=== PATIENT | male | born 1950 | race African-American/Black ===

== ENCOUNTER 2018-01-01 22:42 | Observation (INO) ==
[2018-01-01] MEDS ORDERED: ONDANSETRON 4 MG/2 ML VIAL IV STA (23:32)
[2018-01-01] MEDS ORDERED: methylPREDNISolone SOD SUC 125 MG/2 ML VIAL IV STA (23:32)
[2018-01-01] MEDS ORDERED: FUROSEMIDE 100 MG/10 ML VIAL IV STA (23:32)
[2018-01-01] MEDS ORDERED: ALBUTEROL 2.5 MG/3 ML NEB RESP TX SCH (23:45)
[2018-01-01 23:46] LABS: Basophils # 0.1 10*3/uL (0.0-0.2); Basophils % 0.4 % (0.0-0.8); Eosinophils # 0.9 10*3/uL (0.0-0.87); Eosinophils % 7.1 % (0.00-10.9); Hematocrit 38.9 VOL% (42.0-52.0); Hemoglobin 12.5 GM/DL (14.0-18.0); Immature Granulocytes % 1.3 %; Immature Granulocytes Absolute 0.16 #; Lymphocytes # 2.5 10*3/uL (1.4-4.0); Lymphocytes % 20.5 % (21.2-54.2); Mean Corpuscular HGB Conc 32.1 GM/DL (32-36); Mean Corpuscular Hemoglobin 27 PG (27-34); Mean Corpuscular Volume 85.3 FL (87-102); Mean Platelet Volume 10.5 FL (9.6-12.0); Monocytes # 1.1 10*3/uL (0.11-0.8); Monocytes % 9.3 % (1.7-12.7); Neutrophils # 7.5 10*3/uL (1.4-7.4); Neutrophils % 61.4 % (38.7-73.9); Platelet Count 242 T/CUMM (130-400); Red Blood Count 4.56 MC/CUMM (3.8-5.5); Red Cell Distribution Width 15.5 % (9.3-17.3); White Blood Count 12.2 T/CUMM (4-12)
[2018-01-01 23:53] LABS: PT Patient Result 10.2 SECS
[2018-01-02] LABS: Albumin 3.5 G/DL (3.4-5.0); Bilirubin,Total 0.4 MG/DL (0.2-1.0); Calcium 9.1 MG/DL (8.5-10.1); Osmolality,Calculated 280.4 MOS/KG (273-304); Potassium 3.6 MMOL/L (3.5-5.1); Total Protein 7.9 G/DL (6.4-8.3)
[2018-01-02 00:07] LABS: ABG HCO3 27.1 MMOL/L (20-26); ABG Oxygen Saturation 98.2 % (95-100); ABG PCO2 44.8 MM HG (35-48); ABG PH 7.407 (7.35-7.45); ABG TCO2 24.9 MMOL/L (23-27)
[2018-01-02] MEDS ORDERED: MAGNESIUM SULF RIDER 2 GM in PREMIX 1 EACH IV STA (00:50)
[2018-01-02] MEDS ORDERED: ALBUTEROL 2.5 MG/3 ML NEB RESP TX PRN (01:35)
[2018-01-02] MEDS ORDERED: ACETAMINOPHEN 325 MG TABLET PO PRN (01:41)
[2018-01-02] MEDS ORDERED: ONDANSETRON 4 MG/2 ML VIAL IV PRN (01:41)
[2018-01-02] MEDS ORDERED: methylPREDNISolone SOD SUC 40 MG/1 ML VIAL IV SCH (02:00)
[2018-01-02] MEDS ORDERED: cefTRIAXone 1,000 MG in SYRINGE 1 EACH IV SCH (02:00)
[2018-01-02] MEDS ORDERED: AZITHROMYCIN INJ 500 MG in SODIUM CHLORIDE 0.9% 250 ML IV SCH (04:00)
[2018-01-02 06:18] LABS: Basophils % 0.3 % (0.0-0.8); Eosinophils # 0.1 10*3/uL (0.0-0.87); Eosinophils % 0.6 % (0.00-10.9); Hematocrit 39.8 VOL% (42.0-52.0); Hemoglobin 12.8 GM/DL (14.0-18.0); Immature Granulocytes % 0.9 %; Immature Granulocytes Absolute 0.08 #; Lymphocytes # 0.7 10*3/uL (1.4-4.0); Lymphocytes % 8.4 % (21.2-54.2); Mean Corpuscular HGB Conc 32.2 GM/DL (32-36); Mean Corpuscular Hemoglobin 27 PG (27-34); Mean Corpuscular Volume 85.2 FL (87-102); Mean Platelet Volume 9.4 FL (9.6-12.0); Monocytes # 0.1 10*3/uL (0.11-0.8); Monocytes % 1.3 % (1.7-12.7); Neutrophils # 7.7 10*3/uL (1.4-7.4); Neutrophils % 88.5 % (38.7-73.9); Platelet Count 242 T/CUMM (130-400); Red Blood Count 4.67 MC/CUMM (3.8-5.5); Red Cell Distribution Width 15.3 % (9.3-17.3); White Blood Count 8.7 T/CUMM (4-12)
[2018-01-02] MEDS: methylPREDNISolone SOD SUC 40 MG/1 ML VIAL IV SCH ×2 (06:20→16:17)
[2018-01-02] MEDS: ALBUTEROL/IPRATROPIUM 3 ML NEB RESP TX SCH ×2 (06:58→12:00)
[2018-01-02 06:59] LABS: Calcium 9.5 MG/DL (8.5-10.1); Osmolality,Calculated 279.7 MOS/KG (273-304); Potassium 3.7 MMOL/L (3.5-5.1); Thyroid Stimulating Hormone 0.66 uIU/ml (0.358-3.74)
[2018-01-02] MEDS ORDERED: THEOPHYLLINE ER (24 HR) 200 MG CAPSULE PO SCH (09:00)
[2018-01-02] MEDS ORDERED: METOPROLOL TARTRATE 25 MG TABLET PO SCH (09:00)
[2018-01-02] MEDS ORDERED: Umeclidinium Brm/Vilanterol Tr [Anoro Ellipta] 1 PUFF INH SCH (09:00)
[2018-01-02] MEDS ORDERED: FAMOTIDINE 20 MG TABLET PO SCH (09:00)
[2018-01-02] MEDS ORDERED: CETIRIZINE 10 MG TABLET PO SCH (09:00)
[2018-01-02] MEDS ORDERED: CARVEDILOL 3.125 MG TABLET PO SCH (09:00)
[2018-01-02] MEDS ORDERED: FLUTICASONE 50 MCG NASAL SPRAY 16 GM BOTTLE BOTH NARES SCH (09:00)
[2018-01-02] MEDS ORDERED: LISINOPRIL/HCTZ 10-12.5 MG TABLET PO SCH (09:00)
[2018-01-02] MEDS ORDERED: ASPIRIN EC 81 MG TABLET PO SCH (09:00)
[2018-01-02] MEDS ORDERED: ENOXAPARIN 40 MG/0.4 ML SYRINGE SUBCUT SCH (09:00)
[2018-01-02] MEDS ORDERED: RANITIDINE 150 MG TABLET PO SCH (11:30)
[2018-01-02 18:19] VITALS: BP 116/78
== END 2018-01-02 16:25 | disposition home or self-care (01) ==
LOC: N.EDINP 22:42 → N.ED 22:42 → N.2E 01-02 02:19
PROVIDERS: ADMIT Internal Medicine; ATTEND Internal Medicine

== ENCOUNTER 2018-03-08 22:59 | Inpatient (IN) ==
[2018-03-08] MEDS ORDERED: ALBUTEROL/IPRATROPIUM 3 ML NEB RESP TX STA (23:59)
[2018-03-09] MEDS ORDERED: methylPREDNISolone SOD SUC 125 MG/2 ML VIAL IV STA
[2018-03-09] MEDS ORDERED: AZITHROMYCIN 250 MG TABLET PO STA (00:32)
[2018-03-09] MEDS ORDERED: cefTRIAXone 1,000 MG in SODIUM CHLORIDE 0.9% 100 ML IV STA (00:32)
[2018-03-09 00:34] LABS: Alanine Aminotransferase 17 U/L (16-61); Albumin 3.5 G/DL (3.4-5.0); Alkaline Phosphatase 81 U/L (45-117); Aspartate Amino Transferase 17 U/L (0-37); Bilirubin,Total < 0.39 MG/DL (0.2-1.0); Blood Urea Nitrogen 16 MG/DL (7-18); Calcium 9.1 MG/DL (8.5-10.1); Glucose 148 MG/DL (74-106); Osmolality,Calculated 280.5 MOS/KG (273-304); Potassium 3.5 MMOL/L (3.5-5.1); Sodium 139 MMOL/L (136-145); Total Protein 8.1 G/DL (6.4-8.3)
[2018-03-09 00:39] LABS: Basophils # 0.1 10*3/uL (0.0-0.2); Basophils % 0.8 % (0.0-0.8); Eosinophils # 1.1 10*3/uL (0.0-0.87); Eosinophils % 12.8 % (0.00-10.9); Hematocrit 39.1 VOL% (42.0-52.0); Hemoglobin 12.1 GM/DL (14.0-18.0); Immature Granulocytes % 0.9 %; Immature Granulocytes Absolute 0.08 #; Lymphocytes # 2.4 10*3/uL (1.4-4.0); Lymphocytes % 28.4 % (21.2-54.2); Mean Corpuscular HGB Conc 30.9 GM/DL (32-36); Mean Corpuscular Hemoglobin 27 PG (27-34); Mean Corpuscular Volume 85.9 FL (87-102); Mean Platelet Volume 10.2 FL (9.6-12.0); Monocytes # 0.6 10*3/uL (0.11-0.8); Monocytes % 7.1 % (1.7-12.7); Neutrophils # 4.3 10*3/uL (1.4-7.4); Platelet Count 312 T/CUMM (130-400); Red Blood Count 4.55 MC/CUMM (3.8-5.5); Red Cell Distribution Width 13.4 % (9.3-17.3); White Blood Count 8.6 T/CUMM (4-12)
[2018-03-09] MEDS ORDERED: ALBUTEROL 2.5 MG/3 ML NEB RESP TX PRN (01:25)
[2018-03-09] MEDS ORDERED: ACETAMINOPHEN 325 MG TABLET PO PRN (01:34)
[2018-03-09] MEDS ORDERED: ONDANSETRON 4 MG/2 ML VIAL IV PRN (01:34)
[2018-03-09 01:44] LABS: Eosinophils 10 % (0-10); Lymphocytes 22 % (20-55); Platelet Estimate Normal; Segmented Neutrophils 62 % (50-85); Total Cells Counted 100
[2018-03-09] MEDS: LEVOFLOXACIN INJ 750 MG in PREMIX 1 EACH IV SCH (05:45)
[2018-03-09] MEDS: ALBUTEROL/IPRATROPIUM 3 ML NEB RESP TX SCH ×3 (07:16→19:14)
[2018-03-09] MEDS: CETIRIZINE 10 MG TABLET PO SCH (08:41)
[2018-03-09] MEDS: THEOPHYLLINE ER (24 HR) 200 MG CAPSULE PO SCH (08:41)
[2018-03-09] MEDS: FAMOTIDINE 20 MG TABLET PO SCH ×2 (08:41→21:39)
[2018-03-09] MEDS: ASPIRIN EC 81 MG TABLET PO SCH (08:42)
[2018-03-09] MEDS: methylPREDNISolone SOD SUC 40 MG/1 ML VIAL IV SCH ×2 (08:42→16:57)
[2018-03-09] MEDS: ENOXAPARIN 40 MG/0.4 ML SYRINGE SUBCUT SCH (08:42)
[2018-03-09] MEDS: CARVEDILOL 3.125 MG TABLET PO SCH ×2 (08:42→16:57)
[2018-03-09] MEDS: LISINOPRIL/HCTZ 10-12.5 MG TABLET PO SCH (08:44)
[2018-03-09] MEDS: FLUTICASONE 50 MCG NASAL SPRAY 16 GM BOTTLE BOTH NARES SCH ×2 (08:44→21:39)
[2018-03-09] MEDS ORDERED: Umeclidinium Brm/Vilanterol Tr [Anoro Ellipta] INH SCH (09:00)
[2018-03-10] MEDS: ALBUTEROL/IPRATROPIUM 3 ML NEB RESP TX SCH ×4 (00:30→18:20)
[2018-03-10] MEDS: methylPREDNISolone SOD SUC 40 MG/1 ML VIAL IV SCH ×3 (01:04→16:34)
[2018-03-10] MEDS: LEVOFLOXACIN INJ 750 MG in PREMIX 1 EACH IV SCH (01:08)
[2018-03-10 04:32] LABS: Basophils % 0.1 % (0.0-0.8); Hematocrit 38.3 VOL% (42.0-52.0); Hemoglobin 12.1 GM/DL (14.0-18.0); Immature Granulocytes % 0.7 %; Immature Granulocytes Absolute 0.11 #; Lymphocytes # 1.1 10*3/uL (1.4-4.0); Lymphocytes % 6.9 % (21.2-54.2); Mean Corpuscular HGB Conc 31.6 GM/DL (32-36); Mean Corpuscular Hemoglobin 27 PG (27-34); Mean Corpuscular Volume 84.7 FL (87-102); Mean Platelet Volume 9.5 FL (9.6-12.0); Monocytes # 0.8 10*3/uL (0.11-0.8); Neutrophils # 13.2 10*3/uL (1.4-7.4); Neutrophils % 87.3 % (38.7-73.9); Platelet Count 336 T/CUMM (130-400); Red Blood Count 4.52 MC/CUMM (3.8-5.5); Red Cell Distribution Width 13.5 % (9.3-17.3); White Blood Count 15.2 T/CUMM (4-12)
[2018-03-10 04:58] LABS: Calcium 9.6 MG/DL (8.5-10.1); Osmolality,Calculated 279.5 MOS/KG (273-304); Potassium 4.2 MMOL/L (3.5-5.1)
[2018-03-10] MEDS: CARVEDILOL 3.125 MG TABLET PO SCH ×2 (10:02→16:34)
[2018-03-10] MEDS: LISINOPRIL/HCTZ 10-12.5 MG TABLET PO SCH (10:02)
[2018-03-10] MEDS: THEOPHYLLINE ER (24 HR) 200 MG CAPSULE PO SCH (10:02)
[2018-03-10] MEDS: ENOXAPARIN 40 MG/0.4 ML SYRINGE SUBCUT SCH (10:02)
[2018-03-10] MEDS: CETIRIZINE 10 MG TABLET PO SCH (10:02)
[2018-03-10] MEDS: FAMOTIDINE 20 MG TABLET PO SCH ×2 (10:02→21:02)
[2018-03-10] MEDS: ASPIRIN EC 81 MG TABLET PO SCH (10:02)
[2018-03-10] MEDS: FLUTICASONE 50 MCG NASAL SPRAY 16 GM BOTTLE BOTH NARES SCH ×2 (10:03→21:02)
[2018-03-10] MEDS: guaiFENesin/DM ER 600-30 MG TABLET PO SCH ×2 (10:04→21:02)
[2018-03-11] MEDS: ALBUTEROL/IPRATROPIUM 3 ML NEB RESP TX SCH ×2 (00:59→08:06)
[2018-03-11] MEDS: methylPREDNISolone SOD SUC 40 MG/1 ML VIAL IV SCH (01:18)
[2018-03-11] MEDS: LEVOFLOXACIN INJ 750 MG in PREMIX 1 EACH IV SCH (01:23)
[2018-03-11 05:54] LABS: Basophils % 0.2 % (0.0-0.8); Hematocrit 40.4 VOL% (42.0-52.0); Hemoglobin 12.4 GM/DL (14.0-18.0); Immature Granulocytes % 0.8 %; Immature Granulocytes Absolute 0.14 #; Lymphocytes # 1.1 10*3/uL (1.4-4.0); Lymphocytes % 6.6 % (21.2-54.2); Mean Corpuscular HGB Conc 30.7 GM/DL (32-36); Mean Corpuscular Hemoglobin 27 PG (27-34); Mean Corpuscular Volume 87.1 FL (87-102); Mean Platelet Volume 9.6 FL (9.6-12.0); Monocytes # 0.6 10*3/uL (0.11-0.8); Monocytes % 3.7 % (1.7-12.7); Neutrophils # 15.1 10*3/uL (1.4-7.4); Neutrophils % 88.7 % (38.7-73.9); Platelet Count 355 T/CUMM (130-400); Red Blood Count 4.64 MC/CUMM (3.8-5.5); Red Cell Distribution Width 13.8 % (9.3-17.3); White Blood Count 17.1 T/CUMM (4-12)
[2018-03-11 06:01] LABS: Calcium 9.5 MG/DL (8.5-10.1); Osmolality,Calculated 279.7 MOS/KG (273-304); Potassium 4.5 MMOL/L (3.5-5.1)
[2018-03-11] MEDS ORDERED: methylPREDNISolone SOD SUC 40 MG/1 ML VIAL IV SCH (08:00)
[2018-03-11 10:04] LABS: Troponin I < 0.015 NG/ML (0.00-0.045)
[2018-03-11] MEDS ORDERED: FUROSEMIDE 40 MG TABLET PO SCH (10:30)
[2018-03-11] MEDS: ENOXAPARIN 40 MG/0.4 ML SYRINGE SUBCUT SCH (10:34)
[2018-03-11] MEDS: THEOPHYLLINE ER (24 HR) 200 MG CAPSULE PO SCH (10:35)
[2018-03-11] MEDS: FAMOTIDINE 20 MG TABLET PO SCH (10:35)
[2018-03-11] MEDS: CETIRIZINE 10 MG TABLET PO SCH (10:35)
[2018-03-11] MEDS: LISINOPRIL/HCTZ 10-12.5 MG TABLET PO SCH (10:35)
[2018-03-11] MEDS: guaiFENesin/DM ER 600-30 MG TABLET PO SCH (10:35)
[2018-03-11] MEDS: ASPIRIN EC 81 MG TABLET PO SCH (10:35)
[2018-03-11] MEDS: CARVEDILOL 3.125 MG TABLET PO SCH (10:35)
[2018-03-11] MEDS: FLUTICASONE 50 MCG NASAL SPRAY 16 GM BOTTLE BOTH NARES SCH (10:45)
[2018-03-11 11:59] VITALS: BP 127/71
== END 2018-03-11 12:40 | disposition home or self-care (01) | DRG 191 ==
LOC: N.ED 22:59 → N.EDINP 22:59 → N.3E 03-09 01:15
PROVIDERS: ADMIT Internal Medicine; ATTEND Internal Medicine

== ENCOUNTER 2018-03-24 00:13 | Observation (INO) ==
[2018-03-24] MEDS ORDERED: ASPIRIN 325 MG TABLET PO STA (00:38)
[2018-03-24] MEDS ORDERED: MORPHINE 4 MG/1 ML VIAL IV STA (00:38)
[2018-03-24] MEDS ORDERED: NITROGLYCERIN 2% OINT 1 INCH/GM PACK TOP STA (00:38)
[2018-03-24] MEDS ORDERED: FUROSEMIDE 100 MG/10 ML VIAL IV STA (00:38)
[2018-03-24] MEDS ORDERED: ONDANSETRON 4 MG/2 ML VIAL IV STA (00:38)
[2018-03-24] MEDS ORDERED: methylPREDNISolone SOD SUC 125 MG/2 ML VIAL IV STA (00:38)
[2018-03-24] MEDS ORDERED: ALBUTEROL 2.5 MG/3 ML NEB RESP TX SCH (01:00)
[2018-03-24 01:10] LABS: Alanine Aminotransferase 24 U/L (16-61); Albumin 3.3 G/DL (3.4-5.0); Alkaline Phosphatase 85 U/L (45-117); Aspartate Amino Transferase 17 U/L (0-37); Bilirubin,Total < 0.39 MG/DL (0.2-1.0); Blood Urea Nitrogen 16 MG/DL (7-18); Calcium 9.4 MG/DL (8.5-10.1); Glucose 137 MG/DL (74-106); Osmolality,Calculated 277.7 MOS/KG (273-304); Sodium 138 MMOL/L (136-145); Total Protein 7.9 G/DL (6.4-8.3)
[2018-03-24] MEDS ORDERED: MAGNESIUM SULF RIDER 2 GM in PREMIX 1 EACH IV STA (01:18)
[2018-03-24 01:21] LABS: INR 0.9
[2018-03-24 01:22] LABS: Allen Test Positive
[2018-03-24 01:23] LABS: ABG Base Excess 2.3 MMOL/L (-2.5-2.5); ABG HCO3 29.2 MMOL/L (20-26); ABG PCO2 55.8 MM HG (35-48); ABG PH 7.337 (7.35-7.45); ABG PO2 184.9 MM HG (80-95); ABG TCO2 30.9 MMOL/L (23-27)
[2018-03-24 01:25] LABS: Apearance,Urine CLEAR (Clear); Bacteria,Urine Occasional /HPF (Few); Bilirubin,Urine Negative (Negative); Blood, Urine Negative (Negative); Glucose,Urine (UA) Negative (Negative); Ketones,Urine Negative (Negative); Mucus,Urine Occasional /LPF (Occasional); Nitrite,Urine Negative (Negative); Protein,Urine Negative; RBC,Urine 1 /HPF (0-4); Urine Color Yellow (Yellow); Urine Specific Gravity 1.011 (1.001-1.035); Urine Urobilinogen < 2.0 EU/DL (0.2-1.0); WBC,Urine 1 /HPF (0-6)
[2018-03-24] MEDS ORDERED: ALBUTEROL 2.5 MG/3 ML NEB RESP TX PRN (02:05)
[2018-03-24] MEDS ORDERED: ACETAMINOPHEN 325 MG TABLET PO PRN (02:08)
[2018-03-24] MEDS ORDERED: ONDANSETRON 4 MG/2 ML VIAL IV PRN (02:08)
[2018-03-24] MEDS ORDERED: methylPREDNISolone SOD SUC 40 MG/1 ML VIAL IV SCH (02:30)
[2018-03-24 02:58] LABS: Basophils # 0.1 10*3/uL (0.0-0.2); Basophils % 0.5 % (0.0-0.8); Eosinophils # 0.7 10*3/uL (0.0-0.87); Eosinophils % 5.2 % (0.00-10.9); Hematocrit 40.3 VOL% (42.0-52.0); Hemoglobin 12.7 GM/DL (14.0-18.0); Immature Granulocytes % 1.2 %; Immature Granulocytes Absolute 0.15 #; Lymphocytes # 3.2 10*3/uL (1.4-4.0); Lymphocytes % 24.5 % (21.2-54.2); Mean Corpuscular HGB Conc 31.5 GM/DL (32-36); Mean Corpuscular Hemoglobin 27 PG (27-34); Mean Corpuscular Volume 85.6 FL (87-102); Mean Platelet Volume 11.2 FL (9.6-12.0); Monocytes # 1.5 10*3/uL (0.11-0.8); Monocytes % 11.5 % (1.7-12.7); Neutrophils # 7.4 10*3/uL (1.4-7.4); Neutrophils % 57.1 % (38.7-73.9); Platelet Count 205 T/CUMM (130-400); Red Blood Count 4.71 MC/CUMM (3.8-5.5); Red Cell Distribution Width 14.1 % (9.3-17.3)
[2018-03-24] MEDS: PIPERACILLIN/TAZOBACTAM 3,375 MG in SODIUM CHLORIDE 0.9% 100 ML IV SCH ×3 (02:58→18:14)
[2018-03-24] MEDS: ALBUTEROL/IPRATROPIUM 3 ML NEB RESP TX SCH ×3 (07:23→19:42)
[2018-03-24] MEDS: ENOXAPARIN 40 MG/0.4 ML SYRINGE SUBCUT SCH (08:33)
[2018-03-24] MEDS: methylPREDNISolone SOD SUC 40 MG/1 ML VIAL IV SCH ×3 (08:33→22:22)
[2018-03-24] MEDS: FUROSEMIDE 40 MG/4 ML VIAL IV SCH (12:39)
[2018-03-25] MEDS: ALBUTEROL/IPRATROPIUM 3 ML NEB RESP TX SCH ×3 (01:03→12:04)
[2018-03-25] MEDS: PIPERACILLIN/TAZOBACTAM 3,375 MG in SODIUM CHLORIDE 0.9% 100 ML IV SCH ×2 (02:50→10:47)
[2018-03-25] MEDS: methylPREDNISolone SOD SUC 40 MG/1 ML VIAL IV SCH ×2 (02:55→09:10)
[2018-03-25 04:41] LABS: Basophils % 0.1 % (0.0-0.8); Hematocrit 35.3 VOL% (42.0-52.0); Hemoglobin 11.2 GM/DL (14.0-18.0); Immature Granulocytes Absolute 0.21 #; Lymphocytes # 1.2 10*3/uL (1.4-4.0); Lymphocytes % 5.5 % (21.2-54.2); Mean Corpuscular HGB Conc 31.7 GM/DL (32-36); Mean Corpuscular Hemoglobin 27 PG (27-34); Mean Corpuscular Volume 84.4 FL (87-102); Mean Platelet Volume 9.7 FL (9.6-12.0); Monocytes # 0.9 10*3/uL (0.11-0.8); Neutrophils # 19.5 10*3/uL (1.4-7.4); Neutrophils % 89.4 % (38.7-73.9); Platelet Count 307 T/CUMM (130-400); Red Blood Count 4.18 MC/CUMM (3.8-5.5); Red Cell Distribution Width 13.9 % (9.3-17.3); White Blood Count 21.8 T/CUMM (4-12)
[2018-03-25 04:46] LABS: Calcium 9.2 MG/DL (8.5-10.1); Osmolality,Calculated 278.8 MOS/KG (273-304); Potassium 4.4 MMOL/L (3.5-5.1)
[2018-03-25 05:30] LABS: Hypochromasia 1+; Platelet Estimate Adequate
[2018-03-25] MEDS: ENOXAPARIN 40 MG/0.4 ML SYRINGE SUBCUT SCH (09:09)
[2018-03-25] MEDS: FUROSEMIDE 40 MG/4 ML VIAL IV SCH (09:10)
[2018-03-25 12:19] VITALS: BP 131/73
== END 2018-03-25 13:57 | disposition home or self-care (01) ==
LOC: EDBD → EDUNIT# → N.EDINP 00:13 → N.ED 00:13 → N.3E 02:29
PROVIDERS: ADMIT Internal Medicine; ATTEND Internal Medicine

== ENCOUNTER 2018-05-29 21:12 | Inpatient (IN) ==
[2018-05-29 21:59] LABS: Basophils # 0.1 10*3/uL (0.0-0.2); Basophils % 0.4 % (0.0-0.8); Eosinophils # 0.6 10*3/uL (0.0-0.87); Eosinophils % 3.5 % (0.00-10.9); Hematocrit 36.3 VOL% (42.0-52.0); Hemoglobin 11.7 GM/DL (14.0-18.0); Immature Granulocytes % 2.4 %; Immature Granulocytes Absolute 0.41 #; Lymphocytes # 2.1 10*3/uL (1.4-4.0); Lymphocytes % 12.8 % (21.2-54.2); Mean Corpuscular HGB Conc 32.2 GM/DL (32-36); Mean Corpuscular Hemoglobin 28 PG (27-34); Mean Corpuscular Volume 85.4 FL (87-102); Mean Platelet Volume 9.8 FL (9.6-12.0); Monocytes # 1.8 10*3/uL (0.11-0.8); Neutrophils # 11.7 10*3/uL (1.4-7.4); Neutrophils % 69.9 % (38.7-73.9); Platelet Count 274 T/CUMM (130-400); Red Blood Count 4.25 MC/CUMM (3.8-5.5); Red Cell Distribution Width 15.3 % (9.3-17.3); White Blood Count 16.7 T/CUMM (4-12)
[2018-05-29 22:07] LABS: INR 0.9; PT Patient Result 10.3 SECS
[2018-05-29 22:17] LABS: Albumin 3.5 G/DL (3.4-5.0); Bilirubin,Total 0.4 MG/DL (0.2-1.0); Osmolality,Calculated 279.7 MOS/KG (273-304); Potassium 4.1 MMOL/L (3.5-5.1); Total Protein 7.1 G/DL (6.4-8.3)
[2018-05-29 22:32] LABS: Eosinophils 3 % (0-10); Hypochromasia Slight; Lymphocytes 14 % (20-55); Platelet Estimate Normal; Segmented Neutrophils 76 % (50-85); Total Cells Counted 100
[2018-05-30] MEDS ORDERED: LEVOFLOXACIN INJ 750 MG in PREMIX 1 EACH IV STA (01:52)
[2018-05-30] MEDS ORDERED: methylPREDNISolone SOD SUC 125 MG/2 ML VIAL IV STA (01:52)
[2018-05-30] MEDS ORDERED: ALBUTEROL/IPRATROPIUM 3 ML NEB RESP TX STA (01:52)
[2018-05-30] MEDS ORDERED: ONDANSETRON 4 MG/2 ML VIAL IV PRN (02:37)
[2018-05-30] MEDS ORDERED: guaiFENesin/DM ER 600-30 MG TABLET PO PRN (02:37)
[2018-05-30] MEDS ORDERED: ACETAMINOPHEN 325 MG TABLET PO PRN (02:37)
[2018-05-30] MEDS ORDERED: ALBUTEROL 2.5 MG/3 ML NEB RESP TX PRN (02:37)
[2018-05-30] MEDS ORDERED: diphenhydrAMINE CAP 25 MG CAPSULE PO PRN (02:37)
[2018-05-30] MEDS ORDERED: MORPHINE 4 MG/1 ML VIAL IV PRN (02:37)
[2018-05-30] MEDS ORDERED: NICOTINE 21 MG/24 HR PATCH TRANSDERM PRN (02:37)
[2018-05-30] MEDS ORDERED: MAGNESIUM SULF RIDER 2 GM in PREMIX 1 EACH IV PRN (02:37)
[2018-05-30] MEDS ORDERED: MAGNESIUM SULF RIDER 4 GM in PREMIX 1 EACH IV PRN (02:37)
[2018-05-30] MEDS ORDERED: BISACODYL 5 MG TABLET PO PRN (02:37)
[2018-05-30] MEDS: ALBUTEROL/IPRATROPIUM 3 ML NEB RESP TX SCH ×3 (07:56→19:15)
[2018-05-30] MEDS: PANTOPRAZOLE 40 MG TABLET PO SCH (08:47)
[2018-05-30] MEDS: ENOXAPARIN 40 MG/0.4 ML SYRINGE SUBCUT SCH (08:47)
[2018-05-30] MEDS ORDERED: methylPREDNISolone SOD SUC 40 MG/1 ML VIAL IV SCH (11:00)
[2018-05-30] MEDS: metroNIDAZOLE INJ 500 MG in PREMIX 1 EACH IV SCH ×2 (15:43→20:40)
[2018-05-31] MEDS: ALBUTEROL/IPRATROPIUM 3 ML NEB RESP TX SCH ×4 (00:53→19:38)
[2018-05-31] MEDS: LEVOFLOXACIN INJ 750 MG in PREMIX 1 EACH IV SCH (03:40)
[2018-05-31] MEDS: metroNIDAZOLE INJ 500 MG in PREMIX 1 EACH IV SCH ×4 (05:10→22:01)
[2018-05-31 07:55] LABS: Basophils % 0.1 % (0.0-0.8); Hematocrit 36.6 VOL% (42.0-52.0); Hemoglobin 11.5 GM/DL (14.0-18.0); Immature Granulocytes % 1.7 %; Lymphocytes # 1.9 10*3/uL (1.4-4.0); Mean Corpuscular HGB Conc 31.4 GM/DL (32-36); Mean Corpuscular Hemoglobin 27 PG (27-34); Mean Corpuscular Volume 85.3 FL (87-102); Mean Platelet Volume 9.4 FL (9.6-12.0); Monocytes # 2.4 10*3/uL (0.11-0.8); Monocytes % 9.9 % (1.7-12.7); Neutrophils # 19.4 10*3/uL (1.4-7.4); Neutrophils % 80.3 % (38.7-73.9); Platelet Count 266 T/CUMM (130-400); Red Blood Count 4.29 MC/CUMM (3.8-5.5); Red Cell Distribution Width 15.4 % (9.3-17.3); White Blood Count 24.1 T/CUMM (4-12)
[2018-05-31 08:17] LABS: Calcium 9.3 MG/DL (8.5-10.1)
[2018-05-31 08:18] LABS: Osmolality,Calculated 276.8 MOS/KG (273-304); Potassium 4.4 MMOL/L (3.5-5.1)
[2018-05-31 08:23] LABS: Lymphocytes 8 % (20-55); Segmented Neutrophils 85 % (50-85); Total Cells Counted 100
[2018-05-31 08:24] LABS: Hypochromasia 1+; Platelet Estimate Adequate
[2018-05-31] MEDS: methylPREDNISolone SOD SUC 40 MG/1 ML VIAL IV SCH (09:09)
[2018-05-31] MEDS: PANTOPRAZOLE 40 MG TABLET PO SCH (09:10)
[2018-05-31] MEDS: ENOXAPARIN 40 MG/0.4 ML SYRINGE SUBCUT SCH (09:10)
[2018-06-01] MEDS: ALBUTEROL/IPRATROPIUM 3 ML NEB RESP TX SCH ×2 (00:10→07:36)
[2018-06-01] MEDS: LEVOFLOXACIN INJ 750 MG in PREMIX 1 EACH IV SCH (02:22)
[2018-06-01 02:44] LABS: Basophils % 0.2 % (0.0-0.8); Eosinophils % 0.1 % (0.00-10.9); Hematocrit 34.9 VOL% (42.0-52.0); Hemoglobin 10.8 GM/DL (14.0-18.0); Immature Granulocytes % 1.7 %; Immature Granulocytes Absolute 0.31 #; Lymphocytes # 1.8 10*3/uL (1.4-4.0); Lymphocytes % 9.8 % (21.2-54.2); Mean Corpuscular HGB Conc 30.9 GM/DL (32-36); Mean Corpuscular Hemoglobin 27 PG (27-34); Monocytes % 10.6 % (1.7-12.7); Neutrophils # 14.6 10*3/uL (1.4-7.4); Neutrophils % 77.6 % (38.7-73.9); Platelet Count 298 T/CUMM (130-400); Red Blood Count 4.06 MC/CUMM (3.8-5.5); Red Cell Distribution Width 15.5 % (9.3-17.3); White Blood Count 18.8 T/CUMM (4-12)
[2018-06-01 03:02] LABS: Osmolality,Calculated 283.4 MOS/KG (273-304); Potassium 4.4 MMOL/L (3.5-5.1)
[2018-06-01] MEDS: metroNIDAZOLE INJ 500 MG in PREMIX 1 EACH IV SCH ×2 (03:53→08:50)
[2018-06-01 08:21] VITALS: BP 121/74
[2018-06-01] MEDS: PANTOPRAZOLE 40 MG TABLET PO SCH (08:49)
[2018-06-01] MEDS: methylPREDNISolone SOD SUC 40 MG/1 ML VIAL IV SCH (08:49)
[2018-06-01] MEDS: ENOXAPARIN 40 MG/0.4 ML SYRINGE SUBCUT SCH (08:59)
== END 2018-06-01 10:15 | disposition home or self-care (01) | DRG 191 ==
LOC: N.ED 21:12 → N.EDINP 05-30 02:37 → N.2E 05-30 03:59
PROVIDERS: ADMIT Internal Medicine; ATTEND Internal Medicine

== ENCOUNTER 2019-06-29 07:41 | Inpatient (IN) ==
[2019-06-29 08:29] LABS: Basophils % 0.4 % (0.0-0.8); Eosinophils # 0.6 10*3/uL (0.0-0.87); Eosinophils % 5.4 % (0.00-10.9); Hematocrit 37.2 VOL% (42.0-52.0); Hemoglobin 11.7 GM/DL (14.0-18.0); Immature Granulocytes % 0.3 %; Immature Granulocytes Absolute 0.03 #; Lymphocytes # 1.9 10*3/uL (1.4-4.0); Lymphocytes % 17.8 % (21.2-54.2); Mean Corpuscular HGB Conc 31.5 GM/DL (32-36); Mean Corpuscular Volume 84.7 FL (87-102); Mean Platelet Volume 9.3 FL (9.6-12.0); Monocytes % 8.7 % (1.7-12.7); Neutrophils % 67.4 % (38.7-73.9); Platelet Count 312 T/CUMM (130-400); Red Blood Count 4.39 MC/CUMM (3.8-5.5); Red Cell Distribution Width 14.4 % (9.3-17.3); White Blood Count 10.5 T/CUMM (4-12)
[2019-06-29 08:42] LABS: Apearance,Urine CLEAR (Clear); Bilirubin,Urine Negative (Negative); Blood, Urine Negative (Negative); Glucose,Urine (UA) Negative (Negative); Ketones,Urine Negative (Negative); Mucus,Urine Occasional /LPF (Occasional); Nitrite,Urine Negative (Negative); Protein,Urine Negative; RBC,Urine 1 /HPF (0-4); Urine Color Yellow (Yellow); Urine Specific Gravity 1.013 (1.001-1.035); Urine Urobilinogen < 2.0 EU/DL (0.2-1.0)
[2019-06-29] MEDS ORDERED: HYDROmorphone 2 MG/1 ML VIAL IV STA (08:47)
[2019-06-29] MEDS ORDERED: ONDANSETRON 4 MG/2 ML VIAL IV STA (08:47)
[2019-06-29] MEDS ORDERED: ONDANSETRON 4 MG/2 ML VIAL ONE ×2 (08:48→14:07)
[2019-06-29] MEDS ORDERED: MEROPENEM 1,000 MG in SODIUM CHLORIDE 0.9% 100 ML IV STA (08:50)
[2019-06-29 08:53] LABS: Albumin 3.8 G/DL (3.4-5.0); Bilirubin,Total 0.6 MG/DL (0.2-1.0); Calcium 9.9 MG/DL (8.5-10.1); Osmolality,Calculated 282.1 MOS/KG (273-304); Total Protein 8.5 G/DL (6.4-8.3)
[2019-06-29] MEDS ORDERED: MEROPENEM 500 MG VIAL ONE (09:03)
[2019-06-29] MEDS ORDERED: SODIUM CHLORIDE 0.9% 1,000 ML IV STA (09:18)
[2019-06-29] MEDS ORDERED: BISACODYL 5 MG TABLET PO PRN (10:10)
[2019-06-29] MEDS ORDERED: DEXTROSE 50% 25 GM/50 ML VIAL IV PRN (10:10)
[2019-06-29] MEDS ORDERED: ACETAMINOPHEN 325 MG TABLET PO PRN (10:10)
[2019-06-29] MEDS ORDERED: GLUCAGON 1 MG VIAL IM PRN (10:10)
[2019-06-29] MEDS ORDERED: ONDANSETRON 4 MG/2 ML VIAL IV PRN ×2 (10:10→14:15)
[2019-06-29] MEDS ORDERED: DEXTROSE 10% 250 ML BAG IV PRN (10:28)
[2019-06-29] MEDS: DOXYCYCLINE HYCLATE INJ 100 MG in SODIUM CHLORIDE 0.9% 100 ML IV SCH (11:27)
[2019-06-29] MEDS: SODIUM CHLORIDE 0.9% 1,000 ML IV SCH (11:29)
[2019-06-29] MEDS ORDERED: LIDOCAINE 1% 20 ML VIAL ONE (12:40)
[2019-06-29] MEDS ORDERED: fentaNYL 100 MCG/2 ML VIAL ONE (14:07)
[2019-06-29] MEDS ORDERED: HYDROmorphone 2 MG/1 ML VIAL ONE (14:07)
[2019-06-29] MEDS ORDERED: SEVOFLURANE 1 UNIT/15 MINUTE INH ONE (14:07)
[2019-06-29] MEDS ORDERED: PHENYLEPHRINE 1 MG/10 ML SYRINGE IV ONE (14:07)
[2019-06-29] MEDS ORDERED: SUCCINYLCHOLINE 200 MG/10 ML VIAL ONE (14:07)
[2019-06-29] MEDS ORDERED: MIDAZOLAM 2 MG/2 ML VIAL ONE (14:07)
[2019-06-29] MEDS ORDERED: propofoL 200 MG/20 ML VIAL IV ONE (14:07)
[2019-06-29] MEDS ORDERED: LIDOCAINE 2% 5 ML VIAL ONE (14:07)
[2019-06-29] MEDS: HYDROmorphone 2 MG/1 ML VIAL IV PRN ×4 (14:10→14:25)
[2019-06-29] MEDS: PIPERACILLIN/TAZOBACTAM 3,375 MG in SODIUM CHLORIDE 0.9% 100 ML IV SCH ×2 (15:48→20:23)
[2019-06-29] MEDS: ALBUTEROL 2.5 MG/3 ML NEB RESP TX PRN (17:04)
[2019-06-29] MEDS: carvediloL 3.125 MG TABLET PO SCH (17:16)
[2019-06-29] MEDS ORDERED: MORPHINE 4 MG/1 ML VIAL IV ONE (19:58)
[2019-06-30] MEDS: DOXYCYCLINE HYCLATE INJ 100 MG in SODIUM CHLORIDE 0.9% 100 ML IV SCH ×3 (01:01→23:13)
[2019-06-30] MEDS: SODIUM CHLORIDE 0.9% 1,000 ML IV SCH ×3 (04:47→18:11)
[2019-06-30] MEDS: PIPERACILLIN/TAZOBACTAM 3,375 MG in SODIUM CHLORIDE 0.9% 100 ML IV SCH ×3 (05:45→20:12)
[2019-06-30 06:03] LABS: Basophils % 0.3 % (0.0-0.8); Eosinophils # 0.5 10*3/uL (0.0-0.87); Eosinophils % 4.1 % (0.00-10.9); Hematocrit 38.5 VOL% (42.0-52.0); Hemoglobin 12.1 GM/DL (14.0-18.0); Immature Granulocytes % 0.3 %; Immature Granulocytes Absolute 0.03 #; Lymphocytes # 1.7 10*3/uL (1.4-4.0); Lymphocytes % 15.7 % (21.2-54.2); Mean Corpuscular HGB Conc 31.4 GM/DL (32-36); Mean Corpuscular Volume 85.2 FL (87-102); Mean Platelet Volume 9.5 FL (9.6-12.0); Monocytes % 9.4 % (1.7-12.7); Neutrophils % 70.2 % (38.7-73.9); Platelet Count 301 T/CUMM (130-400); Red Blood Count 4.52 MC/CUMM (3.8-5.5); Red Cell Distribution Width 14.5 % (9.3-17.3); White Blood Count 10.9 T/CUMM (4-12)
[2019-06-30 06:42] LABS: Calcium 9.6 MG/DL (8.5-10.1); Osmolality,Calculated 278.8 MOS/KG (273-304); Risk Ratio 1.92; VLDL CHOLESTEROL 15.8 MG/DL
[2019-06-30] MEDS: ALBUTEROL 2.5 MG/3 ML NEB RESP TX PRN (08:50)
[2019-06-30] MEDS: ROSUVASTATIN 20 MG TABLET PO SCH (08:57)
[2019-06-30] MEDS: carvediloL 3.125 MG TABLET PO SCH ×2 (08:57→16:38)
[2019-06-30] MEDS: THEOPHYLLINE ER (24 HR) 200 MG CAPSULE PO SCH (08:57)
[2019-06-30] MEDS: CETIRIZINE 10 MG TABLET PO SCH (08:57)
[2019-06-30] MEDS ORDERED: MORPHINE 4 MG/1 ML VIAL IV PRN (11:41)
[2019-06-30] MEDS ORDERED: DEXTROSE 50% 25 GM/50 ML VIAL IV PRN (11:47)
[2019-06-30] MEDS: lisinopriL 10 MG TABLET PO SCH (12:11)
[2019-06-30] MEDS: cilostazoL 50 MG TABLET PO SCH (20:12)
[2019-07-01] MEDS: PIPERACILLIN/TAZOBACTAM 3,375 MG in SODIUM CHLORIDE 0.9% 100 ML IV SCH (04:52)
[2019-07-01 06:03] LABS: Basophils % 0.4 % (0.0-0.8); Eosinophils # 0.6 10*3/uL (0.0-0.87); Eosinophils % 5.3 % (0.00-10.9); Hemoglobin 11.2 GM/DL (14.0-18.0); Immature Granulocytes % 0.4 %; Immature Granulocytes Absolute 0.04 #; Lymphocytes # 2.4 10*3/uL (1.4-4.0); Lymphocytes % 21.6 % (21.2-54.2); Mean Corpuscular HGB Conc 30.3 GM/DL (32-36); Mean Corpuscular Volume 87.5 FL (87-102); Mean Platelet Volume 9.7 FL (9.6-12.0); Monocytes % 11.1 % (1.7-12.7); Neutrophils % 61.2 % (38.7-73.9); Platelet Count 286 T/CUMM (130-400); Red Blood Count 4.23 MC/CUMM (3.8-5.5); Red Cell Distribution Width 14.5 % (9.3-17.3)
[2019-07-01 06:17] LABS: Calcium 9.3 MG/DL (8.5-10.1); Osmolality,Calculated 278.5 MOS/KG (273-304)
[2019-07-01] MEDS: CETIRIZINE 10 MG TABLET PO SCH (08:54)
[2019-07-01] MEDS: lisinopriL 10 MG TABLET PO SCH (08:54)
[2019-07-01] MEDS: ROSUVASTATIN 20 MG TABLET PO SCH (08:55)
[2019-07-01] MEDS: carvediloL 3.125 MG TABLET PO SCH ×2 (08:55→17:14)
[2019-07-01] MEDS: cilostazoL 50 MG TABLET PO SCH ×2 (08:55→20:53)
[2019-07-01] MEDS: THEOPHYLLINE ER (24 HR) 200 MG CAPSULE PO SCH (08:55)
[2019-07-01] MEDS: LEVOFLOXACIN INJ 750 MG in PREMIX 1 EACH IV SCH (11:22)
[2019-07-01] MEDS: ENOXAPARIN 40 MG/0.4 ML SYRINGE SUBCUT SCH (11:22)
[2019-07-01] MEDS: ALBUTEROL 2.5 MG/3 ML NEB RESP TX PRN (11:28)
[2019-07-01] MEDS: ALBUTEROL/IPRATROPIUM 3 ML NEB RESP TX SCH ×2 (13:12→19:44)
[2019-07-02] MEDS: ALBUTEROL/IPRATROPIUM 3 ML NEB RESP TX SCH ×3 (00:26→13:44)
[2019-07-02] MEDS: SODIUM CHLORIDE 0.9% 1,000 ML IV SCH (02:07)
[2019-07-02 04:41] LABS: Basophils % 0.3 % (0.0-0.8); Eosinophils # 0.5 10*3/uL (0.0-0.87); Eosinophils % 5.4 % (0.00-10.9); Hematocrit 35.4 VOL% (42.0-52.0); Hemoglobin 10.5 GM/DL (14.0-18.0); Immature Granulocytes % 0.5 %; Immature Granulocytes Absolute 0.05 #; Lymphocytes # 2.5 10*3/uL (1.4-4.0); Lymphocytes % 25.8 % (21.2-54.2); Mean Corpuscular HGB Conc 29.7 GM/DL (32-36); Mean Corpuscular Volume 88.7 FL (87-102); Mean Platelet Volume 9.4 FL (9.6-12.0); Monocytes % 10.2 % (1.7-12.7); Neutrophils % 57.8 % (38.7-73.9); Platelet Count 271 T/CUMM (130-400); Red Blood Count 3.99 MC/CUMM (3.8-5.5); Red Cell Distribution Width 14.6 % (9.3-17.3); White Blood Count 9.6 T/CUMM (4-12)
[2019-07-02 04:58] VITALS: BP 91/57
[2019-07-02 05:10] LABS: Calcium 8.9 MG/DL (8.5-10.1); Osmolality,Calculated 281.5 MOS/KG (273-304)
[2019-07-02] MEDS: carvediloL 3.125 MG TABLET PO SCH (09:37)
[2019-07-02] MEDS: ROSUVASTATIN 20 MG TABLET PO SCH (09:50)
[2019-07-02] MEDS: CETIRIZINE 10 MG TABLET PO SCH (09:50)
[2019-07-02] MEDS: THEOPHYLLINE ER (24 HR) 200 MG CAPSULE PO SCH (09:50)
[2019-07-02] MEDS: cilostazoL 50 MG TABLET PO SCH (09:50)
[2019-07-02] MEDS: LEVOFLOXACIN INJ 750 MG in PREMIX 1 EACH IV SCH (12:39)
[2019-07-02] MEDS: ENOXAPARIN 40 MG/0.4 ML SYRINGE SUBCUT SCH (12:43)
== END 2019-07-02 15:20 | disposition home health service (06) | DRG 300 ==
LOC: N.ED 07:41 → N.EDINP 09:06 → N.5E 09:26
PROVIDERS: ADMIT Family Medicine; ATTEND Family Medicine

== ENCOUNTER 2019-07-26 09:26 | Inpatient (IN) ==
[2019-07-26] MEDS ORDERED: ACETAMINOPHEN 325 MG TABLET PO PRN (09:57)
[2019-07-26] MEDS ORDERED: BISACODYL 5 MG TABLET PO PRN (09:57)
[2019-07-26] MEDS ORDERED: ONDANSETRON 4 MG/2 ML VIAL IV PRN (09:57)
[2019-07-26 10:46] LABS: Basophils % 0.4 % (0.0-0.8); Eosinophils # 0.5 10*3/uL (0.0-0.87); Eosinophils % 4.6 % (0.00-10.9); Hematocrit 38.9 VOL% (42.0-52.0); Hemoglobin 11.9 GM/DL (14.0-18.0); Immature Granulocytes % 0.4 %; Immature Granulocytes Absolute 0.04 #; Lymphocytes % 19.5 % (21.2-54.2); Mean Corpuscular HGB Conc 30.6 GM/DL (32-36); Mean Corpuscular Volume 86.3 FL (87-102); Mean Platelet Volume 9.5 FL (9.6-12.0); Monocytes % 9.7 % (1.7-12.7); Neutrophils % 65.4 % (38.7-73.9); Platelet Count 367 T/CUMM (130-400); Red Blood Count 4.51 MC/CUMM (3.8-5.5); Red Cell Distribution Width 14.6 % (9.3-17.3); White Blood Count 10.2 T/CUMM (4-12)
[2019-07-26 11:09] LABS: Alanine Aminotransferase 21 U/L (16-61); Albumin 3.7 G/DL (3.4-5.0); Alkaline Phosphatase 94 U/L (45-117); Aspartate Amino Transferase 19 U/L (0-37); Bilirubin,Total < 0.39 MG/DL (0.2-1.0); Blood Urea Nitrogen 9 MG/DL (7-18); Calcium 9.6 MG/DL (8.5-10.1); Glucose 93 MG/DL (74-106); Osmolality,Calculated 273.7 MOS/KG (273-304); Total Protein 8.5 G/DL (6.4-8.3)
[2019-07-26 11:11] LABS: Estimated Glom Filtration Rate 0 ML/MIN
[2019-07-26] MEDS: PIPERACILLIN/TAZOBACTAM 3,375 MG in SODIUM CHLORIDE 0.9% 100 ML IV SCH ×2 (15:00→23:14)
[2019-07-26] MEDS: HYDROmorphone 2 MG/1 ML VIAL IV PRN ×2 (15:06→19:40)
[2019-07-26] MEDS: VANCOMYCIN INJ 1,500 MG in SODIUM CHLORIDE 0.9% 500 ML IV SCH (16:59)
[2019-07-26] MEDS: ALBUTEROL/IPRATROPIUM 3 ML NEB RESP TX PRN (20:09)
[2019-07-27] MEDS: VANCOMYCIN INJ 1,500 MG in SODIUM CHLORIDE 0.9% 500 ML IV SCH ×2 (04:05→17:13)
[2019-07-27] MEDS: PIPERACILLIN/TAZOBACTAM 3,375 MG in SODIUM CHLORIDE 0.9% 100 ML IV SCH ×3 (07:08→23:49)
[2019-07-27] MEDS: HYDROmorphone 2 MG/1 ML VIAL IV PRN ×3 (07:44→21:55)
[2019-07-27] MEDS: ALBUTEROL/IPRATROPIUM 3 ML NEB RESP TX PRN (08:17)
[2019-07-27] MEDS: PANTOPRAZOLE 40 MG TABLET PO SCH (08:57)
[2019-07-27] MEDS: FLUCONAZOLE 200 MG TABLET PO SCH (08:58)
[2019-07-27] MEDS: KETOCONAZOLE 2% CREAM 30 GM TUBE TOP SCH ×2 (09:38→21:59)
[2019-07-28] MEDS: HYDROmorphone 2 MG/1 ML VIAL IV PRN (04:03)
[2019-07-28] MEDS: VANCOMYCIN INJ 1,500 MG in SODIUM CHLORIDE 0.9% 500 ML IV SCH ×2 (04:07→15:48)
[2019-07-28] MEDS: PIPERACILLIN/TAZOBACTAM 3,375 MG in SODIUM CHLORIDE 0.9% 100 ML IV SCH ×3 (07:30→22:20)
[2019-07-28] MEDS: FLUCONAZOLE 200 MG TABLET PO SCH (08:03)
[2019-07-28] MEDS: PANTOPRAZOLE 40 MG TABLET PO SCH (08:03)
[2019-07-28] MEDS: KETOCONAZOLE 2% CREAM 30 GM TUBE TOP SCH ×2 (08:03→20:06)
[2019-07-28] MEDS ORDERED: ALBUTEROL 2.5 MG/3 ML NEB RESP TX PRN (11:11)
[2019-07-28] MEDS: carvediloL 3.125 MG TABLET PO SCH (17:39)
[2019-07-29] MEDS: VANCOMYCIN INJ 1,500 MG in SODIUM CHLORIDE 0.9% 500 ML IV SCH ×2 (04:23→15:23)
[2019-07-29] MEDS: PIPERACILLIN/TAZOBACTAM 3,375 MG in SODIUM CHLORIDE 0.9% 100 ML IV SCH ×3 (07:13→22:50)
[2019-07-29] MEDS: PANTOPRAZOLE 40 MG TABLET PO SCH (09:10)
[2019-07-29] MEDS: ASPIRIN EC 81 MG TABLET PO SCH (09:10)
[2019-07-29] MEDS: CETIRIZINE 10 MG TABLET PO SCH (09:10)
[2019-07-29] MEDS: carvediloL 3.125 MG TABLET PO SCH ×2 (09:10→16:55)
[2019-07-29] MEDS: FUROSEMIDE 20 MG TABLET PO SCH (09:10)
[2019-07-29] MEDS: THEOPHYLLINE ER (24 HR) 200 MG CAPSULE PO SCH (09:10)
[2019-07-29] MEDS: ROSUVASTATIN 20 MG TABLET PO SCH (09:11)
[2019-07-29] MEDS: FLUCONAZOLE 200 MG TABLET PO SCH (09:11)
[2019-07-29] MEDS: LOPERAMIDE 2 MG CAPSULE PO PRN ×2 (09:12→20:52)
[2019-07-29] MEDS: KETOCONAZOLE 2% CREAM 30 GM TUBE TOP SCH ×2 (09:16→20:53)
[2019-07-29] MEDS: ALBUTEROL/IPRATROPIUM 3 ML NEB RESP TX PRN (21:55)
[2019-07-30] MEDS: VANCOMYCIN INJ 1,500 MG in SODIUM CHLORIDE 0.9% 500 ML IV SCH ×2 (03:45→20:56)
[2019-07-30] MEDS: PIPERACILLIN/TAZOBACTAM 3,375 MG in SODIUM CHLORIDE 0.9% 100 ML IV SCH ×3 (06:29→22:35)
[2019-07-30] MEDS: FLUCONAZOLE 200 MG TABLET PO SCH (08:54)
[2019-07-30] MEDS: FUROSEMIDE 20 MG TABLET PO SCH (08:54)
[2019-07-30] MEDS: ASPIRIN EC 81 MG TABLET PO SCH (08:54)
[2019-07-30] MEDS: THEOPHYLLINE ER (24 HR) 200 MG CAPSULE PO SCH (08:54)
[2019-07-30] MEDS: CETIRIZINE 10 MG TABLET PO SCH (08:54)
[2019-07-30] MEDS: PANTOPRAZOLE 40 MG TABLET PO SCH (08:54)
[2019-07-30] MEDS: ROSUVASTATIN 20 MG TABLET PO SCH (08:54)
[2019-07-30] MEDS: carvediloL 3.125 MG TABLET PO SCH ×2 (08:54→16:28)
[2019-07-30] MEDS: KETOCONAZOLE 2% CREAM 30 GM TUBE TOP SCH ×2 (08:56→22:40)
[2019-07-30] MEDS: ALBUTEROL/IPRATROPIUM 3 ML NEB RESP TX PRN (14:07)
[2019-07-31] MEDS: PIPERACILLIN/TAZOBACTAM 3,375 MG in SODIUM CHLORIDE 0.9% 100 ML IV SCH ×2 (06:15→16:22)
[2019-07-31] MEDS: PANTOPRAZOLE 40 MG TABLET PO SCH (08:48)
[2019-07-31] MEDS: FLUCONAZOLE 200 MG TABLET PO SCH (08:48)
[2019-07-31] MEDS: ROSUVASTATIN 20 MG TABLET PO SCH (08:48)
[2019-07-31] MEDS: ASPIRIN EC 81 MG TABLET PO SCH (08:48)
[2019-07-31] MEDS: carvediloL 3.125 MG TABLET PO SCH ×2 (08:48→16:22)
[2019-07-31] MEDS: THEOPHYLLINE ER (24 HR) 200 MG CAPSULE PO SCH (08:48)
[2019-07-31] MEDS: FUROSEMIDE 20 MG TABLET PO SCH (08:48)
[2019-07-31] MEDS: CETIRIZINE 10 MG TABLET PO SCH (08:48)
[2019-07-31] MEDS: KETOCONAZOLE 2% CREAM 30 GM TUBE TOP SCH ×2 (08:51→21:08)
[2019-07-31] MEDS: VANCOMYCIN INJ 1,500 MG in SODIUM CHLORIDE 0.9% 500 ML IV SCH ×2 (10:20→22:58)
[2019-07-31] MEDS: ALBUTEROL/IPRATROPIUM 3 ML NEB RESP TX PRN ×2 (10:52→21:29)
[2019-08-01] MEDS: PIPERACILLIN/TAZOBACTAM 3,375 MG in SODIUM CHLORIDE 0.9% 100 ML IV SCH ×3 (03:58→23:29)
[2019-08-01] MEDS: FLUCONAZOLE 200 MG TABLET PO SCH (09:13)
[2019-08-01] MEDS: THEOPHYLLINE ER (24 HR) 200 MG CAPSULE PO SCH (09:13)
[2019-08-01] MEDS: CETIRIZINE 10 MG TABLET PO SCH (09:13)
[2019-08-01] MEDS: ASPIRIN EC 81 MG TABLET PO SCH (09:13)
[2019-08-01] MEDS: FUROSEMIDE 20 MG TABLET PO SCH (09:13)
[2019-08-01] MEDS: carvediloL 3.125 MG TABLET PO SCH ×2 (09:13→17:06)
[2019-08-01] MEDS: ROSUVASTATIN 20 MG TABLET PO SCH (09:13)
[2019-08-01] MEDS: PANTOPRAZOLE 40 MG TABLET PO SCH (09:13)
[2019-08-01] MEDS: KETOCONAZOLE 2% CREAM 30 GM TUBE TOP SCH ×2 (09:13→21:05)
[2019-08-01] MEDS: VANCOMYCIN INJ 1,500 MG in SODIUM CHLORIDE 0.9% 500 ML IV SCH ×2 (09:14→21:05)
[2019-08-01] MEDS: ALBUTEROL/IPRATROPIUM 3 ML NEB RESP TX PRN (11:35)
[2019-08-02] MEDS: PIPERACILLIN/TAZOBACTAM 3,375 MG in SODIUM CHLORIDE 0.9% 100 ML IV SCH ×2 (06:52→14:17)
[2019-08-02] MEDS: VANCOMYCIN INJ 1,500 MG in SODIUM CHLORIDE 0.9% 500 ML IV SCH ×2 (08:53→21:14)
[2019-08-02] MEDS: THEOPHYLLINE ER (24 HR) 200 MG CAPSULE PO SCH (08:53)
[2019-08-02] MEDS: FUROSEMIDE 20 MG TABLET PO SCH (08:54)
[2019-08-02] MEDS: carvediloL 3.125 MG TABLET PO SCH ×2 (08:54→16:53)
[2019-08-02] MEDS: FLUCONAZOLE 200 MG TABLET PO SCH (08:54)
[2019-08-02] MEDS: KETOCONAZOLE 2% CREAM 30 GM TUBE TOP SCH ×2 (08:54→21:14)
[2019-08-02] MEDS: CETIRIZINE 10 MG TABLET PO SCH (08:54)
[2019-08-02] MEDS: PANTOPRAZOLE 40 MG TABLET PO SCH (08:54)
[2019-08-02] MEDS: ASPIRIN EC 81 MG TABLET PO SCH (08:54)
[2019-08-02] MEDS: ROSUVASTATIN 20 MG TABLET PO SCH (08:54)
[2019-08-02] MEDS: ALBUTEROL/IPRATROPIUM 3 ML NEB RESP TX PRN (12:20)
[2019-08-03] MEDS: CETIRIZINE 10 MG TABLET PO SCH (09:37)
[2019-08-03] MEDS: carvediloL 3.125 MG TABLET PO SCH (09:37)
[2019-08-03] MEDS: THEOPHYLLINE ER (24 HR) 200 MG CAPSULE PO SCH (09:37)
[2019-08-03] MEDS: ROSUVASTATIN 20 MG TABLET PO SCH (09:37)
[2019-08-03] MEDS: FUROSEMIDE 20 MG TABLET PO SCH (09:37)
[2019-08-03] MEDS: FLUCONAZOLE 200 MG TABLET PO SCH (09:37)
[2019-08-03] MEDS: PANTOPRAZOLE 40 MG TABLET PO SCH (09:37)
[2019-08-03] MEDS: ASPIRIN EC 81 MG TABLET PO SCH (09:37)
[2019-08-03] MEDS: KETOCONAZOLE 2% CREAM 30 GM TUBE TOP SCH (09:43)
[2019-08-03] MEDS: VANCOMYCIN INJ 1,500 MG in SODIUM CHLORIDE 0.9% 500 ML IV SCH (09:44)
[2019-08-03 12:08] VITALS: BP 156/90
== END 2019-08-03 13:15 | disposition swing bed (61) | DRG 603 ==
LOC: N.3E 09:50
PROVIDERS: ADMIT Surgery; ATTEND Surgery

== ENCOUNTER 2019-09-07 15:00 | Inpatient (IN) ==
[2019-09-07] MEDS ORDERED: ONDANSETRON 4 MG/2 ML VIAL IV PRN (15:10)
[2019-09-07] MEDS ORDERED: ACETAMINOPHEN 325 MG TABLET PO PRN (15:10)
[2019-09-07] MEDS ORDERED: CHLORHEXIDINE 4% SOLN 118 ML BOTTLE TOP ONE (15:20)
[2019-09-07] MEDS: PIPERACILLIN/TAZOBACTAM 3,375 MG in SODIUM CHLORIDE 0.9% 100 ML IV SCH (17:10)
[2019-09-07 17:12] LABS: Basophils # 0.1 10*3/uL (0.0-0.2); Basophils % 0.5 % (0.0-0.8); Eosinophils # 0.5 10*3/uL (0.0-0.87); Eosinophils % 4.7 % (0.00-10.9); Hematocrit 39.2 VOL% (42.0-52.0); Hemoglobin 11.9 GM/DL (14.0-18.0); Immature Granulocytes % 0.3 %; Immature Granulocytes Absolute 0.03 #; Lymphocytes # 2.2 10*3/uL (1.4-4.0); Lymphocytes % 22.5 % (21.2-54.2); Mean Corpuscular HGB Conc 30.4 GM/DL (32-36); Mean Corpuscular Volume 85.4 FL (87-102); Mean Platelet Volume 9.4 FL (9.6-12.0); Monocytes % 7.7 % (1.7-12.7); Neutrophils % 64.3 % (38.7-73.9); Platelet Count 277 T/CUMM (130-400); Red Blood Count 4.59 MC/CUMM (3.8-5.5); Red Cell Distribution Width 15.1 % (9.3-17.3); White Blood Count 9.8 T/CUMM (4-12)
[2019-09-07 17:33] LABS: Albumin 3.1 G/DL (3.4-5.0); Bilirubin,Total 0.4 MG/DL (0.2-1.0); Calcium 9.7 MG/DL (8.5-10.1); Osmolality,Calculated 278.4 MOS/KG (273-304); Total Protein 7.9 G/DL (6.4-8.3)
[2019-09-07] MEDS ORDERED: ALBUTEROL 2.5 MG/3 ML NEB RESP TX PRN (18:21)
[2019-09-07] MEDS: carvediloL 3.125 MG TABLET PO SCH (18:45)
[2019-09-07] MEDS: ALBUTEROL/IPRATROPIUM 3 ML NEB RESP TX SCH ×2 (19:34→23:14)
[2019-09-07] MEDS: ROSUVASTATIN 20 MG TABLET PO SCH (21:03)
[2019-09-07] MEDS: FUROSEMIDE 40 MG TABLET PO SCH (21:03)
[2019-09-07] MEDS: cilostazoL 50 MG TABLET PO SCH (21:03)
[2019-09-07] MEDS: KETOCONAZOLE 2% CREAM 30 GM TUBE TOP SCH (21:04)
[2019-09-07] MEDS: FLUCONAZOLE INJ 200 MG in PREMIX 1 EACH IV SCH (23:21)
[2019-09-08] MEDS: PIPERACILLIN/TAZOBACTAM 3,375 MG in SODIUM CHLORIDE 0.9% 100 ML IV SCH ×3 (01:45→16:24)
[2019-09-08] MEDS: ALBUTEROL/IPRATROPIUM 3 ML NEB RESP TX SCH ×6 (02:10→23:18)
[2019-09-08 07:30] LABS: Basophils # 0.1 10*3/uL (0.0-0.2); Basophils % 0.6 % (0.0-0.8); Eosinophils # 0.6 10*3/uL (0.0-0.87); Eosinophils % 6.8 % (0.00-10.9); Hematocrit 36.6 VOL% (42.0-52.0); Hemoglobin 11.3 GM/DL (14.0-18.0); Immature Granulocytes % 0.3 %; Immature Granulocytes Absolute 0.03 #; Lymphocytes # 2.1 10*3/uL (1.4-4.0); Lymphocytes % 23.8 % (21.2-54.2); Mean Corpuscular HGB Conc 30.9 GM/DL (32-36); Mean Platelet Volume 9.8 FL (9.6-12.0); Monocytes % 10.4 % (1.7-12.7); Neutrophils % 58.1 % (38.7-73.9); Platelet Count 250 T/CUMM (130-400); Red Blood Count 4.41 MC/CUMM (3.8-5.5); Red Cell Distribution Width 14.9 % (9.3-17.3); White Blood Count 8.9 T/CUMM (4-12)
[2019-09-08 07:55] LABS: Calcium 8.9 MG/DL (8.5-10.1); Osmolality,Calculated 276.4 MOS/KG (273-304)
[2019-09-08] MEDS: ASPIRIN EC 81 MG TABLET PO SCH (08:59)
[2019-09-08] MEDS: carvediloL 3.125 MG TABLET PO SCH ×2 (08:59→16:24)
[2019-09-08] MEDS: CETIRIZINE 10 MG TABLET PO SCH (08:59)
[2019-09-08] MEDS: POTASSIUM CHLORIDE 20 MEQ TABLET PO SCH (08:59)
[2019-09-08] MEDS: cilostazoL 50 MG TABLET PO SCH ×2 (08:59→20:55)
[2019-09-08] MEDS: PANTOPRAZOLE 40 MG TABLET PO SCH (08:59)
[2019-09-08] MEDS ORDERED: FUROSEMIDE 20 MG TABLET PO SCH (09:00)
[2019-09-08] MEDS ORDERED: FAMOTIDINE 20 MG TABLET PO SCH (09:00)
[2019-09-08] MEDS: THEOPHYLLINE ER (24 HR) 400 MG TABLET PO SCH (09:00)
[2019-09-08] MEDS: FUROSEMIDE 40 MG TABLET PO SCH ×2 (09:00→16:24)
[2019-09-08] MEDS: KETOCONAZOLE 2% CREAM 30 GM TUBE TOP SCH ×3 (09:00→20:55)
[2019-09-08] MEDS: ROSUVASTATIN 20 MG TABLET PO SCH (20:54)
[2019-09-08] MEDS: FLUCONAZOLE INJ 200 MG in PREMIX 1 EACH IV SCH (22:49)
[2019-09-09] MEDS: PIPERACILLIN/TAZOBACTAM 3,375 MG in SODIUM CHLORIDE 0.9% 100 ML IV SCH ×3 (01:48→16:37)
[2019-09-09] MEDS: ALBUTEROL/IPRATROPIUM 3 ML NEB RESP TX SCH ×6 (02:24→23:58)
[2019-09-09 06:21] LABS: Basophils % 0.4 % (0.0-0.8); Eosinophils # 0.8 10*3/uL (0.0-0.87); Eosinophils % 8.6 % (0.00-10.9); Hematocrit 39.2 VOL% (42.0-52.0); Hemoglobin 12.4 GM/DL (14.0-18.0); Immature Granulocytes % 0.4 %; Immature Granulocytes Absolute 0.04 #; Lymphocytes % 21.3 % (21.2-54.2); Mean Corpuscular HGB Conc 31.6 GM/DL (32-36); Mean Corpuscular Volume 82.7 FL (87-102); Mean Platelet Volume 9.8 FL (9.6-12.0); Monocytes % 10.8 % (1.7-12.7); Neutrophils % 58.5 % (38.7-73.9); Platelet Count 276 T/CUMM (130-400); Red Blood Count 4.74 MC/CUMM (3.8-5.5); Red Cell Distribution Width 14.7 % (9.3-17.3); White Blood Count 9.5 T/CUMM (4-12)
[2019-09-09] MEDS: KETOCONAZOLE 2% CREAM 30 GM TUBE TOP SCH ×3 (08:45→21:08)
[2019-09-09] MEDS: ASPIRIN EC 81 MG TABLET PO SCH (08:45)
[2019-09-09] MEDS: THEOPHYLLINE ER (24 HR) 400 MG TABLET PO SCH (08:45)
[2019-09-09] MEDS: MULTIVITAMIN (CENTRUM) TABLET PO SCH (08:45)
[2019-09-09] MEDS: cilostazoL 50 MG TABLET PO SCH ×2 (08:45→21:07)
[2019-09-09] MEDS: PANTOPRAZOLE 40 MG TABLET PO SCH (08:46)
[2019-09-09] MEDS: CETIRIZINE 10 MG TABLET PO SCH (08:46)
[2019-09-09] MEDS: carvediloL 3.125 MG TABLET PO SCH ×2 (08:46→16:43)
[2019-09-09] MEDS: FUROSEMIDE 40 MG TABLET PO SCH ×2 (08:46→16:36)
[2019-09-09] MEDS: POTASSIUM CHLORIDE 20 MEQ TABLET PO SCH (09:10)
[2019-09-09] MEDS: ROSUVASTATIN 20 MG TABLET PO SCH (21:07)
[2019-09-09] MEDS: FLUCONAZOLE INJ 200 MG in PREMIX 1 EACH IV SCH (23:16)
[2019-09-10] MEDS: PIPERACILLIN/TAZOBACTAM 3,375 MG in SODIUM CHLORIDE 0.9% 100 ML IV SCH ×3 (00:58→17:26)
[2019-09-10] MEDS: ALBUTEROL/IPRATROPIUM 3 ML NEB RESP TX SCH ×6 (03:08→23:15)
[2019-09-10] MEDS: POTASSIUM CHLORIDE 20 MEQ TABLET PO SCH (10:18)
[2019-09-10] MEDS: ASPIRIN EC 81 MG TABLET PO SCH (10:18)
[2019-09-10] MEDS: CETIRIZINE 10 MG TABLET PO SCH (10:19)
[2019-09-10] MEDS: THEOPHYLLINE ER (24 HR) 400 MG TABLET PO SCH (10:19)
[2019-09-10] MEDS: PANTOPRAZOLE 40 MG TABLET PO SCH (10:19)
[2019-09-10] MEDS: carvediloL 3.125 MG TABLET PO SCH ×2 (10:19→17:26)
[2019-09-10] MEDS: KETOCONAZOLE 2% CREAM 30 GM TUBE TOP SCH ×3 (10:19→20:31)
[2019-09-10] MEDS: FUROSEMIDE 40 MG TABLET PO SCH ×2 (10:19→17:25)
[2019-09-10] MEDS: MULTIVITAMIN (CENTRUM) TABLET PO SCH (10:19)
[2019-09-10] MEDS: cilostazoL 50 MG TABLET PO SCH ×2 (10:19→20:30)
[2019-09-10] MEDS: ROSUVASTATIN 20 MG TABLET PO SCH (20:30)
[2019-09-10] MEDS: FLUCONAZOLE INJ 200 MG in PREMIX 1 EACH IV SCH (23:28)
[2019-09-11] MEDS: PIPERACILLIN/TAZOBACTAM 3,375 MG in SODIUM CHLORIDE 0.9% 100 ML IV SCH ×3 (00:34→16:01)
[2019-09-11] MEDS: ALBUTEROL/IPRATROPIUM 3 ML NEB RESP TX SCH ×6 (03:05→23:25)
[2019-09-11] MEDS: FUROSEMIDE 40 MG TABLET PO SCH ×2 (10:27→16:01)
[2019-09-11] MEDS: KETOCONAZOLE 2% CREAM 30 GM TUBE TOP SCH ×3 (10:27→22:04)
[2019-09-11] MEDS: cilostazoL 50 MG TABLET PO SCH ×2 (10:27→22:04)
[2019-09-11] MEDS: ASPIRIN EC 81 MG TABLET PO SCH (10:27)
[2019-09-11] MEDS: MULTIVITAMIN (CENTRUM) TABLET PO SCH (10:27)
[2019-09-11] MEDS: CETIRIZINE 10 MG TABLET PO SCH (10:27)
[2019-09-11] MEDS: PANTOPRAZOLE 40 MG TABLET PO SCH (10:27)
[2019-09-11] MEDS: POTASSIUM CHLORIDE 20 MEQ TABLET PO SCH (10:27)
[2019-09-11] MEDS: THEOPHYLLINE ER (24 HR) 400 MG TABLET PO SCH (10:27)
[2019-09-11] MEDS: carvediloL 3.125 MG TABLET PO SCH ×2 (10:27→16:01)
[2019-09-11] MEDS: ROSUVASTATIN 20 MG TABLET PO SCH (22:04)
[2019-09-11] MEDS: FLUCONAZOLE INJ 200 MG in PREMIX 1 EACH IV SCH (23:39)
[2019-09-12] MEDS: PIPERACILLIN/TAZOBACTAM 3,375 MG in SODIUM CHLORIDE 0.9% 100 ML IV SCH ×2 (00:40→08:34)
[2019-09-12] MEDS: ALBUTEROL/IPRATROPIUM 3 ML NEB RESP TX SCH ×4 (03:02→13:40)
[2019-09-12] MEDS: MULTIVITAMIN (CENTRUM) TABLET PO SCH (08:29)
[2019-09-12] MEDS: PANTOPRAZOLE 40 MG TABLET PO SCH (08:29)
[2019-09-12] MEDS: carvediloL 3.125 MG TABLET PO SCH (08:29)
[2019-09-12] MEDS: ASPIRIN EC 81 MG TABLET PO SCH (08:29)
[2019-09-12] MEDS: FUROSEMIDE 40 MG TABLET PO SCH (08:29)
[2019-09-12] MEDS: cilostazoL 50 MG TABLET PO SCH (08:29)
[2019-09-12] MEDS: CETIRIZINE 10 MG TABLET PO SCH (08:29)
[2019-09-12] MEDS: THEOPHYLLINE ER (24 HR) 400 MG TABLET PO SCH (08:29)
[2019-09-12] MEDS: POTASSIUM CHLORIDE 20 MEQ TABLET PO SCH (08:34)
[2019-09-12] MEDS: KETOCONAZOLE 2% CREAM 30 GM TUBE TOP SCH ×2 (10:00→10:10)
[2019-09-12] MEDS ORDERED: FLUCONAZOLE 200 MG TABLET PO SCH (12:00)
[2019-09-12 12:10] VITALS: BP 119/73
== END 2019-09-12 13:56 | disposition swing bed (61) | DRG 603 ==
LOC: N.3E 15:46
PROVIDERS: ADMIT Surgery; ATTEND Surgery

== ENCOUNTER 2019-12-02 11:40 | Inpatient (IN) ==
[2019-12-02] MEDS ORDERED: PIPERACILLIN/TAZOBACTAM 3,375 MG in SODIUM CHLORIDE 0.9% 100 ML IV STA (12:43)
[2019-12-02 13:12] LABS: Basophils % 0.4 % (0.0-0.8); Eosinophils # 0.6 10*3/uL (0.0-0.87); Eosinophils % 7.8 % (0.00-10.9); Hematocrit 40.1 VOL% (42.0-52.0); Hemoglobin 12.7 GM/DL (14.0-18.0); Immature Granulocytes % 0.4 %; Immature Granulocytes Absolute 0.03 #; Lymphocytes % 25.7 % (21.2-54.2); Mean Corpuscular HGB Conc 31.7 GM/DL (32-36); Mean Corpuscular Volume 82.5 FL (87-102); Mean Platelet Volume 9.2 FL (9.6-12.0); Monocytes % 7.4 % (1.7-12.7); Neutrophils % 58.3 % (38.7-73.9); Platelet Count 284 T/CUMM (130-400); Red Blood Count 4.86 MC/CUMM (3.8-5.5); Red Cell Distribution Width 15.4 % (9.3-17.3); White Blood Count 7.7 T/CUMM (4-12)
[2019-12-02 13:43] LABS: Albumin 3.6 G/DL (3.4-5.0); Bilirubin,Total 0.6 MG/DL (0.2-1.0); Calcium 9.2 MG/DL (8.5-10.1); Total Protein 7.3 G/DL (6.4-8.3)
[2019-12-02] MEDS ORDERED: BISACODYL 5 MG TABLET PO PRN (14:52)
[2019-12-02] MEDS ORDERED: ACETAMINOPHEN 325 MG TABLET PO PRN (14:52)
[2019-12-02] MEDS ORDERED: ONDANSETRON 4 MG/2 ML VIAL IV PRN (14:52)
[2019-12-02] MEDS ORDERED: MORPHINE 4 MG/1 ML VIAL IV PRN ×2 (14:52)
[2019-12-02] MEDS: VANCOMYCIN INJ 1,500 MG in SODIUM CHLORIDE 0.9% 500 ML IV SCH (17:56)
[2019-12-02] MEDS: PIPERACILLIN/TAZOBACTAM 3,375 MG in SODIUM CHLORIDE 0.9% 100 ML IV SCH (21:30)
[2019-12-03 04:46] LABS: Basophils # 0.1 10*3/uL (0.0-0.2); Basophils % 0.7 % (0.0-0.8); Eosinophils # 0.7 10*3/uL (0.0-0.87); Eosinophils % 8.8 % (0.00-10.9); Hematocrit 38.2 VOL% (42.0-52.0); Hemoglobin 12.1 GM/DL (14.0-18.0); Immature Granulocytes % 0.3 %; Immature Granulocytes Absolute 0.02 #; Lymphocytes % 26.3 % (21.2-54.2); Mean Corpuscular HGB Conc 31.7 GM/DL (32-36); Mean Platelet Volume 9.7 FL (9.6-12.0); Monocytes % 11.7 % (1.7-12.7); Neutrophils % 52.2 % (38.7-73.9); Platelet Count 265 T/CUMM (130-400); Red Blood Count 4.66 MC/CUMM (3.8-5.5); Red Cell Distribution Width 15.2 % (9.3-17.3); White Blood Count 7.6 T/CUMM (4-12)
[2019-12-03] MEDS: PIPERACILLIN/TAZOBACTAM 3,375 MG in SODIUM CHLORIDE 0.9% 100 ML IV SCH ×3 (05:10→23:15)
[2019-12-03 05:15] LABS: Calcium 8.9 MG/DL (8.5-10.1); Osmolality,Calculated 278.3 MOS/KG (273-304)
[2019-12-03] MEDS: ALBUTEROL/IPRATROPIUM 3 ML NEB RESP TX PRN ×2 (05:56→19:35)
[2019-12-03] MEDS: PANTOPRAZOLE 40 MG TABLET PO SCH (09:46)
[2019-12-03] MEDS: VANCOMYCIN INJ 1,500 MG in SODIUM CHLORIDE 0.9% 500 ML IV SCH ×2 (09:46→20:32)
[2019-12-03] MEDS: ENOXAPARIN 40 MG/0.4 ML SYRINGE SUBCUT SCH (11:11)
[2019-12-04] MEDS: PIPERACILLIN/TAZOBACTAM 3,375 MG in SODIUM CHLORIDE 0.9% 100 ML IV SCH ×3 (04:55→21:50)
[2019-12-04] MEDS: ALBUTEROL/IPRATROPIUM 3 ML NEB RESP TX PRN ×3 (07:57→20:28)
[2019-12-04] MEDS: VANCOMYCIN INJ 1,500 MG in SODIUM CHLORIDE 0.9% 500 ML IV SCH (09:38)
[2019-12-04] MEDS: PANTOPRAZOLE 40 MG TABLET PO SCH (09:38)
[2019-12-04] MEDS: ENOXAPARIN 40 MG/0.4 ML SYRINGE SUBCUT SCH (09:42)
[2019-12-05] MEDS: VANCOMYCIN INJ 1,500 MG in SODIUM CHLORIDE 0.9% 500 ML IV SCH ×2 (01:50→12:23)
[2019-12-05] MEDS: PIPERACILLIN/TAZOBACTAM 3,375 MG in SODIUM CHLORIDE 0.9% 100 ML IV SCH ×2 (04:15→15:50)
[2019-12-05 12:04] VITALS: BP 201/102
[2019-12-05] MEDS: PANTOPRAZOLE 40 MG TABLET PO SCH (12:22)
[2019-12-05] MEDS: ENOXAPARIN 40 MG/0.4 ML SYRINGE SUBCUT SCH (12:22)
== END 2019-12-05 16:03 | disposition home health service (06) | DRG 603 ==
LOC: N.ED 11:40 → N.EDINP 14:52 → N.3E 16:11
PROVIDERS: ADMIT Surgery; ATTEND Surgery

== ENCOUNTER 2020-07-04 15:13 | Inpatient (IN) ==
[2020-07-04] MEDS ORDERED: ONDANSETRON 4 MG/2 ML VIAL IV STA ×2 (16:09→16:10)
[2020-07-04] MEDS ORDERED: MORPHINE 4 MG/1 ML VIAL IV STA ×2 (16:09→16:10)
[2020-07-04 16:14] LABS: Basophils % 0.3 % (0.0-0.8); Eosinophils # 0.4 10*3/uL (0.0-0.87); Eosinophils % 4.1 % (0.00-10.9); Hematocrit 39.3 VOL% (42.0-52.0); Hemoglobin 12.7 GM/DL (14.0-18.0); Immature Granulocytes % 0.2 %; Immature Granulocytes Absolute 0.02 #; Lymphocytes # 2.2 10*3/uL (1.4-4.0); Lymphocytes % 21.7 % (21.2-54.2); Mean Corpuscular HGB Conc 32.3 GM/DL (32-36); Mean Corpuscular Volume 83.3 FL (87-102); Mean Platelet Volume 9.2 FL (9.6-12.0); Neutrophils % 61.7 % (38.7-73.9); Platelet Count 280 T/CUMM (130-400); Red Blood Count 4.72 MC/CUMM (3.8-5.5); Red Cell Distribution Width 14.1 % (9.3-17.3); White Blood Count 10.3 T/CUMM (4-12)
[2020-07-04 16:39] LABS: Alanine Aminotransferase 12 U/L (16-61); Albumin 3.3 G/DL (3.4-5.0); Alkaline Phosphatase 104 U/L (45-117); Aspartate Amino Transferase 15 U/L (0-37); Bilirubin,Total < 0.39 MG/DL (0.2-1.0); Blood Urea Nitrogen 17 MG/DL (7-18); Calcium 10.3 MG/DL (8.5-10.1); Carbon Dioxide 29 MMOL/L (21-32); Estimated Glom Filtration Rate 77 ML/MIN; Glucose 115 MG/DL (74-106); Osmolality,Calculated 279.5 MOS/KG (273-304); Potassium 3.9 MMOL/L (3.5-5.1); Sodium 139 MMOL/L (136-145); Total Protein 8.3 G/DL (6.4-8.2)
[2020-07-04] MEDS ORDERED: DEXTROSE 50% 25 GM/50 ML VIAL IV PRN (17:47)
[2020-07-04] MEDS ORDERED: PROMETHAZINE 25 MG/1 ML VIAL IM PRN (17:47)
[2020-07-04] MEDS ORDERED: ONDANSETRON 4 MG/2 ML VIAL IV PRN (17:47)
[2020-07-04] MEDS ORDERED: GLUCAGON 1 MG VIAL IM PRN (17:47)
[2020-07-04] MEDS ORDERED: PIPERACILLIN/TAZOBACTAM 3,375 MG in SODIUM CHLORIDE 0.9% 100 ML IV SCH (19:00)
[2020-07-04] MEDS ORDERED: VANCOMYCIN INJ 1,500 MG in SODIUM CHLORIDE 0.9% 250 ML IV SCH (19:00)
[2020-07-04] MEDS: FLUCONAZOLE INJ 200 MG in PREMIX 1 EACH IV SCH (19:58)
[2020-07-04] MEDS: INSULIN REGULAR 100 UNIT/ML SUBCUT SCH (21:06)
[2020-07-04] MEDS: PIPERACILLIN/TAZOBACTAM 3,375 MG in SODIUM CHLORIDE 0.9% 100 ML IV SCH (21:27)
[2020-07-04] MEDS: TERBINAFINE 1% CREAM 12 GM TUBE TOP SCH (22:30)
[2020-07-05] MEDS: VANCOMYCIN INJ 1,500 MG in SODIUM CHLORIDE 0.9% 500 ML IV SCH ×2 (01:28→14:54)
[2020-07-05 05:07] LABS: Basophils % 0.4 % (0.0-0.8); Eosinophils # 0.5 10*3/uL (0.0-0.87); Eosinophils % 5.6 % (0.00-10.9); Hematocrit 36.7 VOL% (42.0-52.0); Hemoglobin 11.9 GM/DL (14.0-18.0); Immature Granulocytes % 0.4 %; Immature Granulocytes Absolute 0.03 #; Lymphocytes % 23.2 % (21.2-54.2); Mean Corpuscular HGB Conc 32.4 GM/DL (32-36); Mean Corpuscular Volume 83.8 FL (87-102); Mean Platelet Volume 9.4 FL (9.6-12.0); Monocytes % 11.2 % (1.7-12.7); Neutrophils % 59.2 % (38.7-73.9); Platelet Count 272 T/CUMM (130-400); Red Blood Count 4.38 MC/CUMM (3.8-5.5); Red Cell Distribution Width 13.8 % (9.3-17.3); White Blood Count 8.4 T/CUMM (4-12)
[2020-07-05] MEDS: PIPERACILLIN/TAZOBACTAM 3,375 MG in SODIUM CHLORIDE 0.9% 100 ML IV SCH (05:15)
[2020-07-05 05:39] LABS: Osmolality,Calculated 284.1 MOS/KG (273-304); Potassium 3.5 MMOL/L (3.5-5.1)
[2020-07-05] MEDS: INSULIN REGULAR 100 UNIT/ML SUBCUT SCH ×4 (08:19→22:16)
[2020-07-05] MEDS ORDERED: ENOXAPARIN 40 MG/0.4 ML SYRINGE SUBCUT SCH (10:59)
[2020-07-05] MEDS ORDERED: CETIRIZINE 10 MG TABLET PO PRN (11:03)
[2020-07-05] MEDS ORDERED: NON-FORMULARY MEDICATION (Albuterol Sulfate [Proair Hfa] 90 MCG/PUFF HFA aerosol inhaler) INH PRN (11:03)
[2020-07-05] MEDS ORDERED: FAMOTIDINE 20 MG TABLET PO PRN (11:03)
[2020-07-05] MEDS: TERBINAFINE 1% CREAM 12 GM TUBE TOP SCH ×2 (12:59→21:43)
[2020-07-05] MEDS: MORPHINE 4 MG/1 ML VIAL IV PRN ×3 (13:29→20:52)
[2020-07-05] MEDS: ALBUTEROL 2.5 MG/3 ML NEB RESP TX PRN (15:07)
[2020-07-05] MEDS: cilostazoL 50 MG TABLET PO SCH (17:17)
[2020-07-05] MEDS: carvediloL 3.125 MG TABLET PO SCH (17:17)
[2020-07-05] MEDS: POTASSIUM CHLORIDE 10 MEQ TABLET PO SCH (17:17)
[2020-07-05] MEDS: TRIAMCINOLONE 0.1% CREAM 15 GM TUBE TOP SCH (17:19)
[2020-07-05] MEDS: MEROPENEM 500 MG in SODIUM CHLORIDE 0.9% 100 ML IV SCH ×2 (17:20→21:44)
[2020-07-05] MEDS: FLUCONAZOLE INJ 200 MG in PREMIX 1 EACH IV SCH (18:22)
[2020-07-05] MEDS: RIVAROXABAN 2.5 MG TABLET PO SCH (21:43)
[2020-07-06] MEDS: MORPHINE 4 MG/1 ML VIAL IV PRN (01:42)
[2020-07-06] MEDS: VANCOMYCIN INJ 1,500 MG in SODIUM CHLORIDE 0.9% 500 ML IV SCH ×2 (01:47→14:18)
[2020-07-06] MEDS: MEROPENEM 500 MG in SODIUM CHLORIDE 0.9% 100 ML IV SCH ×4 (03:42→21:53)
[2020-07-06] MEDS: ALBUTEROL 2.5 MG/3 ML NEB RESP TX PRN (06:42)
[2020-07-06] MEDS ORDERED: CIPROFLOXACIN 500 MG TABLET PO SCH (09:00)
[2020-07-06] MEDS: FLUTICASONE 50 MCG NASAL SPRAY 16 GM BOTTLE BOTH NARES SCH (09:08)
[2020-07-06] MEDS: TERBINAFINE 1% CREAM 12 GM TUBE TOP SCH ×2 (09:08→21:55)
[2020-07-06] MEDS: POTASSIUM CHLORIDE 10 MEQ TABLET PO SCH ×2 (09:09→16:22)
[2020-07-06] MEDS: TRIAMCINOLONE 0.1% CREAM 15 GM TUBE TOP SCH (09:09)
[2020-07-06] MEDS: cilostazoL 50 MG TABLET PO SCH ×2 (09:09→16:21)
[2020-07-06] MEDS: RIVAROXABAN 2.5 MG TABLET PO SCH ×2 (09:09→21:54)
[2020-07-06] MEDS: ROSUVASTATIN 20 MG TABLET PO SCH (09:10)
[2020-07-06] MEDS: THEOPHYLLINE ER (24 HR) 400 MG TABLET PO SCH (09:10)
[2020-07-06] MEDS: carvediloL 3.125 MG TABLET PO SCH ×2 (09:10→16:22)
[2020-07-06] MEDS: CHOLECALCIFEROL 5,000 UNIT TABLET PO SCH (09:10)
[2020-07-06] MEDS: FUROSEMIDE 40 MG TABLET PO SCH (09:10)
[2020-07-06] MEDS: ASPIRIN EC 81 MG TABLET PO SCH (09:10)
[2020-07-06] MEDS: INSULIN REGULAR 100 UNIT/ML SUBCUT SCH ×5 (09:14→21:02)
[2020-07-06] MEDS: FLUCONAZOLE INJ 200 MG in PREMIX 1 EACH IV SCH (18:08)
[2020-07-07] MEDS: MORPHINE 4 MG/1 ML VIAL IV PRN (01:30)
[2020-07-07] MEDS: VANCOMYCIN INJ 1,500 MG in SODIUM CHLORIDE 0.9% 500 ML IV SCH ×2 (01:34→13:11)
[2020-07-07] MEDS: MEROPENEM 500 MG in SODIUM CHLORIDE 0.9% 100 ML IV SCH ×4 (04:26→21:01)
[2020-07-07] MEDS: INSULIN REGULAR 100 UNIT/ML SUBCUT SCH ×4 (08:13→20:58)
[2020-07-07] MEDS: ROSUVASTATIN 20 MG TABLET PO SCH (08:15)
[2020-07-07] MEDS: ASPIRIN EC 81 MG TABLET PO SCH (08:15)
[2020-07-07] MEDS: RIVAROXABAN 2.5 MG TABLET PO SCH ×2 (08:15→21:00)
[2020-07-07] MEDS: POTASSIUM CHLORIDE 10 MEQ TABLET PO SCH ×2 (08:15→16:49)
[2020-07-07] MEDS: carvediloL 3.125 MG TABLET PO SCH ×2 (08:15→16:49)
[2020-07-07] MEDS: cilostazoL 50 MG TABLET PO SCH ×2 (08:15→16:49)
[2020-07-07] MEDS: FUROSEMIDE 40 MG TABLET PO SCH (08:15)
[2020-07-07] MEDS: THEOPHYLLINE ER (24 HR) 400 MG TABLET PO SCH (08:15)
[2020-07-07] MEDS: CHOLECALCIFEROL 5,000 UNIT TABLET PO SCH (08:15)
[2020-07-07] MEDS: TRIAMCINOLONE 0.1% CREAM 15 GM TUBE TOP SCH (08:16)
[2020-07-07] MEDS: FLUTICASONE 50 MCG NASAL SPRAY 16 GM BOTTLE BOTH NARES SCH (08:16)
[2020-07-07] MEDS: TERBINAFINE 1% CREAM 12 GM TUBE TOP SCH ×2 (08:16→22:02)
[2020-07-07] MEDS: FLUCONAZOLE INJ 200 MG in PREMIX 1 EACH IV SCH (19:55)
[2020-07-08] MEDS: MEROPENEM 500 MG in SODIUM CHLORIDE 0.9% 100 ML IV SCH ×4 (02:30→21:04)
[2020-07-08] MEDS: VANCOMYCIN INJ 1,500 MG in SODIUM CHLORIDE 0.9% 500 ML IV SCH ×2 (03:00→13:47)
[2020-07-08] MEDS: carvediloL 3.125 MG TABLET PO SCH ×2 (08:35→16:17)
[2020-07-08] MEDS: POTASSIUM CHLORIDE 10 MEQ TABLET PO SCH ×2 (08:35→16:17)
[2020-07-08] MEDS: FUROSEMIDE 40 MG TABLET PO SCH (08:35)
[2020-07-08] MEDS: THEOPHYLLINE ER (24 HR) 400 MG TABLET PO SCH (08:35)
[2020-07-08] MEDS: FLUTICASONE 50 MCG NASAL SPRAY 16 GM BOTTLE BOTH NARES SCH (08:35)
[2020-07-08] MEDS: ASPIRIN EC 81 MG TABLET PO SCH (08:35)
[2020-07-08] MEDS: CHOLECALCIFEROL 5,000 UNIT TABLET PO SCH (08:35)
[2020-07-08] MEDS: ROSUVASTATIN 20 MG TABLET PO SCH (08:35)
[2020-07-08] MEDS: RIVAROXABAN 2.5 MG TABLET PO SCH ×2 (08:36→21:03)
[2020-07-08] MEDS: TERBINAFINE 1% CREAM 12 GM TUBE TOP SCH ×3 (08:36→23:58)
[2020-07-08] MEDS: cilostazoL 50 MG TABLET PO SCH ×2 (08:36→16:17)
[2020-07-08] MEDS: TRIAMCINOLONE 0.1% CREAM 15 GM TUBE TOP SCH (08:36)
[2020-07-08] MEDS: INSULIN REGULAR 100 UNIT/ML SUBCUT SCH ×4 (08:51→20:59)
[2020-07-08] MEDS: ALBUTEROL 2.5 MG/3 ML NEB RESP TX PRN ×2 (09:13→20:20)
[2020-07-08] MEDS: FLUCONAZOLE INJ 200 MG in PREMIX 1 EACH IV SCH (18:04)
[2020-07-09] MEDS: MEROPENEM 500 MG in SODIUM CHLORIDE 0.9% 100 ML IV SCH ×3 (02:30→15:10)
[2020-07-09] MEDS: VANCOMYCIN INJ 1,500 MG in SODIUM CHLORIDE 0.9% 500 ML IV SCH ×2 (03:00→15:52)
[2020-07-09 05:52] LABS: Calcium 9.5 MG/DL (8.5-10.1); Osmolality,Calculated 279.4 MOS/KG (273-304); Potassium 3.8 MMOL/L (3.5-5.1)
[2020-07-09] MEDS: INSULIN REGULAR 100 UNIT/ML SUBCUT SCH ×2 (07:30→12:42)
[2020-07-09] MEDS: FUROSEMIDE 40 MG TABLET PO SCH (08:03)
[2020-07-09] MEDS: RIVAROXABAN 2.5 MG TABLET PO SCH (08:03)
[2020-07-09] MEDS: carvediloL 3.125 MG TABLET PO SCH (08:03)
[2020-07-09] MEDS: POTASSIUM CHLORIDE 10 MEQ TABLET PO SCH (08:03)
[2020-07-09] MEDS: THEOPHYLLINE ER (24 HR) 400 MG TABLET PO SCH (08:03)
[2020-07-09] MEDS: ASPIRIN EC 81 MG TABLET PO SCH (08:03)
[2020-07-09] MEDS: cilostazoL 50 MG TABLET PO SCH (08:03)
[2020-07-09] MEDS: ROSUVASTATIN 20 MG TABLET PO SCH (08:03)
[2020-07-09] MEDS: CHOLECALCIFEROL 5,000 UNIT TABLET PO SCH (08:03)
[2020-07-09] MEDS: FLUTICASONE 50 MCG NASAL SPRAY 16 GM BOTTLE BOTH NARES SCH (08:04)
[2020-07-09] MEDS: TRIAMCINOLONE 0.1% CREAM 15 GM TUBE TOP SCH (09:25)
[2020-07-09] MEDS: TERBINAFINE 1% CREAM 12 GM TUBE TOP SCH (09:25)
[2020-07-09] MEDS: ALBUTEROL 2.5 MG/3 ML NEB RESP TX PRN (16:10)
[2020-07-09 16:12] VITALS: BP 110/61
== END 2020-07-09 17:08 | DRG 603 ==
LOC: N.ED 15:13 → N.EDINP 16:57 → N.5E 17:53
PROVIDERS: ADMIT Surgery; ATTEND Surgery